=== PATIENT | male | born 1990 ===

== ENCOUNTER 2019-03-11 20:20 | Emergency (ER) | payer OTHER ==
[~2019-03-11] VITALS: Ht 180.3 cm; Wt 74.8 kg
[~2019-03-11 20:20] MED LIST: Flonase 0.05% N16 GM; Zyrtec10 MG PO
== END 2019-03-11 21:29 | disposition home or self-care (01) ==
LOC: ER 20:20
DX: K21.9 Gastro-esophageal reflux disease without esophagitis (principal); Z88.2 Allergy status to sulfonamides; Z88.1 Allergy status to other antibiotic agents; F17.200 Nicotine dependence, unspecified, uncomplicated
CPT/HCPCS: 93005; 93010; 96374; 99284-25; J2405